=== PATIENT | male | born 1945 | race Caucasian/White ===

== ENCOUNTER → 2022-05-11 | Outpatient (CLI) | payer MEDICARE, BC ==
--- NOTE | 2022-05-12 12:23 | MR ---
EXAMINATION TYPE: MR lumbar spine wo con DATE OF EXAM: 05/11/2022 7:33 PM COMPARISON: None. CLINICAL INDICATION:Male, 76 years old with history of M54.59 Back Pain; TECHNIQUE: Multi planar, multi sequence imaging was performed utilizing: T1-weighted, T2-weighted, a nd turbo inversion recovery imaging of the lumbar spine. IV Contrast: None. FINDINGS: Alignment: The lumbar vertebral bodies have preserved heights and alignment. Cord: The conus medullaris and the distal spinal cord appear unremarkable with regards to their signa l intensity and morphology. Bones/Discs: Mild reactive bony edema on inversion recovery sequences of the superior anterior endpla te of L5. Multilevel degenerative disc disease is noted and most pronounced at the L4-L5. Multilevel disc desiccation is present. L1-L2: No evidence of significant spinal canal stenosis or neural foraminal stenosis. L2-L3: No evidence of significant spinal canal stenosis or neural foraminal stenosis. L3-L4: Disc bulge and facet joint arthropathy without significant spinal canal stenosis. There is mil d to moderate bilateral neural foraminal stenosis. L4-L5: Disc bulge and facet joint arthropathy without significant spinal canal stenosis. There is mil d to moderate bilateral neural foraminal stenosis. L5-S1: Disc bulge and facet joint arthropathy without significant spinal canal stenosis. There is mil d to moderate bilateral neural foraminal stenosis. IMPRESSION: 1. No definitive evidence of disc herniation or significant spinal canal stenosis. 2. Multilevel disc degeneration with associated osteoarthritic changes.
== END | disposition home or self-care (01) ==
LOC: RADMRIMAIN 17:50
PROVIDERS: ATTEND Orthopaedic Surgery Orthopaedic Surgery of the Spine
DX: M47.817 Spondylosis without myelopathy or radiculopathy, lumbosacral region (principal); M51.37 Other intervertebral disc degeneration, lumbosacral region; M43.16 Spondylolisthesis, lumbar region; M51.27 Other intervertebral disc displacement, lumbosacral region; M99.74 Connective tissue and disc stenosis of intervertebral foramina of sacral region; M25.78 Osteophyte, vertebrae
CPT/HCPCS: 72148